=== PATIENT | female | born 1945 | race Caucasian/White ===

== ENCOUNTER 2023-10-01 09:06 | Emergency (ER) | payer MEDICARE, BC, SELFPAY ==
[2023-10-01 09:11] VITALS: BP 156/101
[2023-10-01 09:38] LABS: % Basophils 0.7 % (0-2); % Eosinophils 2.6 % (0-6); % Immature Granulocytes 0.4 % (0-0.5); % Lymphocytes 38.2 % (20.5-51.1); % Monocytes 8.8 % (1.7-9.3); % Neutrophils 49.3 % (42.2-75.2); Absolute Eosinophils 0.1 10^3/uL (0-0.7); Absolute Monocytes 0.5 10^3/uL (0.1-0.6); Absolute Neutrophils 2.6 10^3/uL (1.4-6.5); Hematocrit 43.1 % (37.0-47.0); Hemoglobin 14.8 g/dL (12.0-16.0); Mean Corp Hgb Conc. 34.3 g/dL (33.0-37.0); Mean Corpuscular Hgb 31.6 pg (27.0-31.0); Mean Corpuscular Volume 92.1 fL (81.0-99.0); Mean Platelet Volume 9.4 fL (7.4-10.4); Nucleated Red Blood Cells % 0 %; Platelet Count 229 10^3/uL (130-400); Red Blood Cell Count 4.68 10^6/uL (4.20-5.40); Red Cell Dist. Width 12.7 % (11.5-14.5); White Blood Cell Count 5.3 10^3/uL (4.8-10.8)
[2023-10-01 09:52] LABS: ALT (SGPT) 28 U/L (0-35); AST (SGOT) 30 U/L (14-36); Albumin 4.6 g/dl (3.5-5.0); Alkaline Phosphatase 88 U/L (38-126); Blood Urea Nitrogen 21 mg/dl (7-17); Calcium 10.7 mg/dl (8.4-10.2); Carbon Dioxide 24 mmol/L (22-30); Chloride 112 mmol/L (98-107); Glucose 123 mg/dl (70-99); Potassium 3.9 mmol/L (3.5-5.1); Sodium 145 mmol/L (135-145); Total Bilirubin 0.8 mg/dl (0.2-1.3); Total Protein 7.3 g/dl (6.3-8.2); eGFR > 60.00
[2023-10-01 10:00] VITALS: BP 169/92
--- NOTE | 2023-10-01 10:01 | ED.GENMED ---
History of Present Illness
General
Chief Complaint: Chest Pain
Source: patient and spouse
Exam Limitations: none
Time Seen by Provider: 10/01/23 10:01
Nursing documentation reviewed up to this point in time: agreed with
Travel History
Have you had any contact with someone who has COVID-19?: No
Do you have any symptoms of coronavirus? Fever > 100 degrees, chills, cough, shortness of breath, sore throat, loss of taste or smell, muscle aches, or headache?: No
History of Present Illness
History of Present Illness:
78-year-old female presents emergency room complaining of jaw pain, ear pain and chest pain at 7:45 AM. She took 381 mg enteric-coated aspirin, and now feels the pain is dissipating. She has had a cardiac workup before about 10 years ago. She
does not follow with a clinical haematologist.
Past History
Past History
ED Past Medical History: Cancer (Endometrial cancer, nodular basal cell cancer, right breast cancer), HTN and Other (Osteoporosis)
ED Past Surgical History: Gynecological (JAMIE), Orthopedic (oRIF right ankle 2007), Tonsilectomy (And adenoids age 6) and Other (Inguinal hernia repair, umbilical hernia repair age 3, eye surgery for strabismus age 17, bilateral mastectomy)
Social History
Tobacco: Non-smoker
Alcohol: None
Drug: None
Personal:
Living: with family
Review of Systems
Review of Systems
Allergies reviewed?: Yes
All Other Systems: Not applicable
Constitutional: Reports no symptoms
EENT: Reports mouth pain
Respiratory: Reports no symptoms
Cardiac: Reports chest pain
ABD/GI: Reports no symptoms
: Reports no symptoms
Musculoskeletal: Reports no symptoms
Skin: Reports no symptoms
Neurological: Reports no symptoms
Endocrine: Reports no symptoms
Hematologic/Lymphatic: Reports no symptoms
Psychiatric: Reports no symptoms
Phy Exam
Physical Exam
Physical Exam:
Physical Exam
General: no apparent distress, not acutely ill
Neck: supple. no meningeal signs. normal posterior pharynx
Heart: s1/s2 regular rate and rhythm, no murmur. equal radial
pulses.
HEENT: Pupils equal round reactive to light, EOMI
Lungs: no acute respiratory distress. clear bilaterally
Abdomen: normal bowel sounds. not tender. no CVAT
Neuro: alert and oriented. no focal neurological deficits cranial nerves II through XII intact
Skin: no rash
Psychiatric: well kept. interactive and cooperative
Extremities: no edema. no calf tenderness. negative homans. good distal pulses
Scores
Heart Score for Chest Pain Patients
STEMI patient?: No
History: Slightly or Non-Suspicious
ECG: Normal
Age: >/= 65 years
Risk Factors: 1 or 2 Risk Factors
Troponin: </= Normal Limit
Heart Score for Chest Pain Patients: 3
Heart Score Risk: 2.5% MACE over next 6 weeks
Course
Orders/Labs/Results
Orders:
Orders
10/01/23 09:06
EKG [Electrocardiogram (*1)] Urgent
Reason for Study: Chest Pain
10/01/23 09:07
EKG- Treatment ONCE
10/01/23 09:25
Complete Blood Count/With Diff Urgent
Comprehensive Metabolic Panel Urgent
Troponin I Urgent
10/01/23 12:23
Troponin I Urgent
Abnormal Lab Results
10/01/23
09:25
MCH 31.6 H pg
(27.0-31.0)
Chloride 112 H mmol/L
(98-107)
BUN 21 H mg/dl
(7-17)
Glucose 123 H mg/dl
(70-99)
Calcium 10.7 H mg/dl
(8.4-10.2)
10/01/23 09:25
10/01/23 09:25
Vital Signs
Initial and Last Documented VS:
Initial Vital Signs
Temp Pulse Resp BP Pulse Ox
97.8 F 76 22 156/101 97
10/01/23 09:11 10/01/23 09:11 10/01/23 09:11 10/01/23 09:11 10/01/23 09:11
Last Documented Vital Signs
Temp Pulse Resp BP Pulse Ox
97.8 F 65 13 165/88 96
10/01/23 09:11 10/01/23 13:15 10/01/23 13:15 10/01/23 13:00 10/01/23 13:15
MDM/Problems Addressed
Differential Diagnosis Includes:
acs, PE
MDM/Problems Addressed:
78 yo female with chest pain, resolved. Serial troponin negative, doubt ACS or PE. Patient stable for discharge with chest pain follow-up.
Chronic conditions affecting care: HTN
Acute Exacerbation and/or Progression of Chronic Illness: HTN
*Pulse Oximetry
Patient hypoxic: no
*EKG
Interpreted by ED Provider?: Yes
EKG Intrepretation Date: 10/01/23
EKG Intrepretation Time: 09:09
Interpretation: abnormal
Comparison EKG: no comparison EKG present
Heart Rate: 77
Rate: normal
Rhythm: sinus
Holly: normal axis
Interval: normal interval
QRS Pattern: normal QRS
Ischemia: non-specific ST changes
*Fiber Heel Piece Shaper Interpretation
Rate: normal
Interpretation: normal
Heart Rate: 77
Rhythm: sinus
*Critical Care Note
Total Time (30-74mins, 75-104mins- exclusive of procedures): Not Applicable
Patient Management
Social determinants of health affecting care: Living situation and Strong social support
Escalation/DeEscalation of care consider admission/obs:
Admit not indicated
ED Attending Note
-
Portions of this chart may have been created with voice recognition software.� Occasional wrong word or��sound alike� substitutions may have occurred due to the inherent limitations of voice recognition software.
Discharge Plan
Departure
Patient Disposition: Home (Routine Discharge)
Date of Disposition: 10/01/23
Time of Disposition: 14:06
Patient with high blood pressure during this ER visit?: Yes
Condition: Good
Discharge Problem:
Chest pain
Instructions: Chest Pain CBC Follow Up, BLOOD PRESSURE
Prescriptions:
No Action
lisinopril 40 mg Tablet
40 mg PO DAILY
hydralazine 25 mg Tablet
25 mg PO DAILY
Theragen Tablet
1 tab PO DAILY
aspirin 81 mg Tablet,Delayed Release (Dr/Ec)
324 mg PO DAILYPRN PRN (Reason: chest pains)
exemestane 25 mg Tablet
25 mg PO DAILY@1200
calcium carbonate-vitamin D3 [Calcium 600 + D(3)] 600 mg-10 mcg (400 unit) Tablet
1 tab PO DAILY
Refresh Optive 0.5-0.9 % Drops
1 drp BOTH EYES BID
[place] 3 Fish Oil 684-1,200 mg Capsule,Delayed Release(Dr/Ec)
1 cap PO DAILY
Prolia 60 mg/mL Syringe
60 mg SC [id number]
Glucosamine Chondroitin 550-30-1 mg Capsule
1 cap PO DAILY
Referrals:
Marvin Lucia MD [Family Provider] -
Interventions
Interventions:
*Risk Screen - Suicide Last Done: 10/01/23 10:01
*General Assessment Last Done: 10/01/23 09:56
*Neglect/Abuse Screening Last Done: 10/01/23 10:01
ED- Fall Risk Assessment Last Done: 10/01/23 09:56
*ED COVID-19 Vaccine History Last Done: 10/01/23 09:14
ED- Cardiac Assessment Last Done: 10/01/23 10:00
Discharge Date and Time
Print Language: GREENLANDIC
[2023-10-01 10:02] LABS: Troponin I < 0.012 ng/ml
[2023-10-01 11:00] VITALS: BP 126/76
[2023-10-01 12:00] VITALS: BP 154/82
[2023-10-01 12:53] LABS: Troponin I < 0.012 ng/ml
[2023-10-01 13:00] VITALS: BP 165/88
[2023-10-01 14:00] VITALS: BP 131/95
== END 2023-10-01 14:14 | disposition home or self-care (01) ==
LOC: EMR 09:06
PROVIDERS: Emergency Medicine; EMERGENCY PHYSICIAN Emergency Medicine; FAMILY PHYSICIAN Internal Medicine
DX: R07.89 Other chest pain (principal); I10 Essential (primary) hypertension
CPT/HCPCS: 99284; 80053; 84484; 85025; 93005

== ENCOUNTER → 2023-10-09 07:45 | Outpatient (REF) | payer MEDICARE, BC, SELFPAY | LOC: RCS 07:45 | PROVIDERS: ATTENDING PHYSICIAN Internal Medicine Cardiovascular Disease; FAMILY PHYSICIAN Internal Medicine | DX: R07.89 Other chest pain (principal); I10 Essential (primary) hypertension; R07.2 Precordial pain; I49.3 Ventricular premature depolarization | CPT/HCPCS: 78452; 93017; A9500 ==

== ENCOUNTER → 2024-08-17 13:02 | Outpatient (REF) | payer MEDICARE, BC, SELFPAY | LOC: RCS 13:02 | PROVIDERS: ATTENDING PHYSICIAN Internal Medicine Cardiovascular Disease; FAMILY PHYSICIAN Internal Medicine | DX: I77.819 Aortic ectasia, unspecified site (principal) | CPT/HCPCS: 93306 ==

== ENCOUNTER 2024-12-29 00:35 | Emergency (ER) | payer MEDICARE, BC, SELFPAY ==
[2024-12-29] VITALS (8 sets, daily range): BP systolic 141–180; BP diastolic 73–99; BMI 25.9
--- NOTE | 2024-12-29 02:00 | ED.GENMED ---
History of Present Illness
General
Chief Complaint: Chest Pain
Source: patient and spouse
Time Seen by Provider: 12/29/24 01:41
History of Present Illness
History of Present Illness:
This patient is a 79-year-old female presents emergency department with complaints of symptoms that started on her way back from a [employer] game. While in the car, she developed slight nausea and lightheadedness followed by the gradual onset of
pain across her chest associated with mild dyspnea and discomfort in bilateral ears. She checked her blood pressure when she got home and it was noted to be elevated x 2 which ultimately prompted her visit here. Now, here in the ER, she is
asymptomatic. She denies associated fever, chills, diaphoresis, abdominal pain, back pain, neck pain, numbness, tingling, leg swelling, or other complaints. Patient states she had similar symptoms last year and had a nuclear stress test that was
unremarkable.
Past History
Past History
ED Past Medical History: Cancer (Endometrial cancer, nodular basal cell cancer, right breast cancer), HTN and Other (Osteoporosis)
ED Past Surgical History: Gynecological (JAMIE), Orthopedic (oRIF right ankle 2007), Tonsilectomy (And adenoids age 6) and Other (Inguinal hernia repair, umbilical hernia repair age 3, eye surgery for strabismus age 17, bilateral mastectomy)
Social History
Tobacco: Non-smoker
Alcohol: None
Drug: None
Personal:
Living: with family
Phy Exam
Physical Exam
Physical Exam:
GENERAL: Alert , in no apparent distress
EYE: pupils equal and reactive
NECK: Supple, no significant adenopathy.
ENT: o/p clr, mmm.
CARDIAC: Regular rate and rhythm .
LUNGS: Clear breath sounds bilaterally, no acute respiratory distress, no wheezes/rales/rhonchi
ABDOMEN: Soft, without focal tenderness, no r/g, no cvat
NEUROLOGICAL: Alert and oriented, no focal neuro deficits
SKIN: Warm and dry, skin intact.
MUSCULOSKELETAL: No edema, well perfused.
PSYCH: Normal and appropriate interaction.
Scores
Heart Score for Chest Pain Patients
STEMI patient?: Not applicable
Course
Orders/Labs/Results
Orders:
Orders
12/29/24 00:38
EKG [Electrocardiogram (*1)] Urgent
Reason for Study: Chest Pain
EKG- Treatment ONCE
12/29/24 01:55
Cardiac Monitoring- Treatment ONCE
12/29/24 01:59
Complete Blood Count/No Diff Urgent
Comprehensive Metabolic Panel Urgent
Troponin I Urgent
12/29/24 05:18
Troponin I Urgent
Abnormal Lab Results
12/29/24
01:59
WBC 11.0 H 10^3/uL
(4.8-10.8)
MCH 31.9 H pg
(27.0-31.0)
BUN 26 H mg/dl
(7-17)
Glucose 144 H mg/dl
(70-99)
Calcium 10.9 H mg/dl
(8.4-10.2)
12/29/24 01:59
12/29/24 01:59
Vital Signs
Initial and Last Documented VS:
Initial Vital Signs
Temp Pulse Resp BP Pulse Ox
97.9 F 67 18 180/99 96
12/29/24 00:47 12/29/24 00:47 12/29/24 00:47 12/29/24 00:47 12/29/24 00:47
Last Documented Vital Signs
Temp Pulse Resp BP Pulse Ox
97.9 F 60 15 147/80 95
12/29/24 00:47 12/29/24 06:15 12/29/24 06:15 12/29/24 06:00 12/29/24 06:15
*Pulse Oximetry
SaO2: 96
Oxygen Mode of Delivery: Room air
Patient hypoxic: no
*Critical Care Note
Total Time (30-74mins, 75-104mins- exclusive of procedures): Not Applicable
Update Note
Update Note:
Patient presents to the Emergency Department with chest pain, ear pain, etc.
Number and Complexity of Problems Addressed at the Encounter
� Chronic conditions affecting care:
� Acute Exacerbation and/or Progression of Chronic Illness:
� Differential Diagnosis includes: But not limited to ACS, pleurisy, musculoskeletal, etc. etc.
Amount and/or Complexity of Data to be Reviewed and Analyzed
� I performed an independent evaluation of and my interpretation is:
EKG: Read by me, normal sinus rhythm with PVC, no acute ischemia noted
CT:
Xrays:
Laboratory Studies: Troponin x 2 unremarkable
Other:
� Review of other/old records reveals:
� Clinical information was obtained by an independent historian: who is bedside
� Prescriptions/Medications Considered but not given:
� Further testing considered but not performed:
Risk of Complications and/or Morbidity or Mortality of Patient Management
� Social determinants of health affecting care:
� Discussion with other providers (PCP, Hospitalists, Consultants, etc):
� Escalation of care including admission/observation vs risk of discharge considered: 7:04 AM patient remains awake alert comfortable in no distress. Workup generally unremarkable here recommend close follow-up discussed with
patient portance of follow-up and reasons return to the ER.
ED Attending Note
-
Portions of this chart may have been created with voice recognition software.� Occasional wrong word or��sound alike� substitutions may have occurred due to the inherent limitations of voice recognition software.
Discharge Plan
Departure
Patient Disposition: Home (Routine Discharge)
Date of Disposition: 12/29/24
Time of Disposition: 07:02
Patient with high blood pressure during this ER visit?: Yes
Condition: Good
Discharge Problem:
Chest pain
Instructions: BLOOD PRESSURE, Chest Pain
Prescriptions:
No Action
lisinopril 40 mg Tablet
40 mg PO DAILY
hydralazine 25 mg Tablet
25 mg PO DAILY
Theragen Tablet
1 tab PO DAILY
exemestane 25 mg Tablet
25 mg PO DAILY@1200
calcium carbonate-vitamin D3 [Calcium 600 + D(3)] 600 mg-10 mcg (400 unit) Tablet
1 tab PO DAILY
Refresh Optive 0.5-0.9 % Drops
1 drp BOTH EYES BID
[place] 3 Fish Oil 684-1,200 mg Capsule,Delayed Release(Dr/Ec)
1 cap PO DAILY
Prolia 60 mg/mL Syringe
60 mg SC [id number]
Glucosamine Chondroitin 550-30-1 mg Capsule
1 cap PO DAILY
cholecalciferol (vitamin D3) [Vitamin D3] 50 mcg (2,000 unit) Tablet
50 mcg PO DAILY
Referrals:
Kendall Gray MD [Active, Cardiology] - Next open appointment
Marvin Lucia MD [Family Provider, Internal Medicine]
Activity Restrictions/Additional Instructions:
IF YOU DEVELOP RECURRENT NEW OR WORSENING PAIN, ANY TROUBLE BREATHING, VOMITING, BACK PAIN, NECK PAIN, OR OTHER WORRISOME SIGNS, PLEASE RETURN TO THE ER IMMEDIATELY!
Interventions
Interventions:
*Risk Screen - Suicide Last Done: 12/29/24 00:54
*General Assessment Last Done: 12/29/24 00:47
*Neglect/Abuse Screening Last Done: 12/29/24 01:43
*ED- Fall Risk Assessment Last Done: 12/29/24 01:43
*ED COVID-19 Vaccine History Last Done: 12/29/24 01:43
ED- Cardiac Assessment Last Done: 12/29/24 01:30
Discharge Date and Time
Print Language: KINYARWAN[place]
[2024-12-29 02:18] LABS: Hematocrit 44.9 % (37.0-47.0); Hemoglobin 15.3 g/dL (12.0-16.0); Mean Corp Hgb Conc. 34.1 g/dL (33.0-37.0); Mean Corpuscular Volume 93.7 fL (81.0-99.0); Platelet Count 239 10^3/uL (130-400); Red Cell Dist. Width 12.5 % (11.5-14.5)
[2024-12-29 02:40] LABS: ALT (SGPT) 35 U/L (0-35); AST (SGOT) 24 U/L (14-36); Albumin 4.8 g/dl (3.5-5.0); Alkaline Phosphatase 78 U/L (38-126); Blood Urea Nitrogen 26 mg/dl (7-17); Calcium 10.9 mg/dl (8.4-10.2); Carbon Dioxide 26 mmol/L (22-30); Chloride 107 mmol/L (98-107); Estimated Creatinine Clearance 44 ml/min; Glucose 144 mg/dl (70-99); Potassium 4.8 mmol/L (3.5-5.1); Sodium 141 mmol/L (135-145); Total Protein 7.8 g/dl (6.3-8.2); eGFR > 60.00
[2024-12-29 02:52] LABS: Troponin I < 0.012 ng/ml
[2024-12-29 06:05] LABS: Troponin I < 0.012 ng/ml
--- NOTE | 2024-12-29 07:30 | EDRN ---
Reviewed discharge instructions with patient. Verbalized understanding. Ambulated with steady gait to the lobby to wait for her to come pick her up.
== END 2024-12-29 07:32 | disposition home or self-care (01) ==
LOC: EMR 00:35
PROVIDERS: EMERGENCY PHYSICIAN Emergency Medicine; FAMILY PHYSICIAN Internal Medicine; REFERRING PHYSICIAN Internal Medicine Cardiovascular Disease
DX: R07.9 Chest pain, unspecified (principal); I10 Essential (primary) hypertension; M81.0 Age-related osteoporosis without current pathological fracture; Z85.3 Personal history of malignant neoplasm of breast; Z90.13 Acquired absence of bilateral breasts and nipples; Z85.42 Personal history of malignant neoplasm of other parts of uterus; Z90.710 Acquired absence of both cervix and uterus; Z85.828 Personal history of other malignant neoplasm of skin
CPT/HCPCS: 99284; 80053; 84484; 85027; 93005

== ENCOUNTER → 2025-04-29 08:36 | Outpatient (REF) | payer MEDICARE, BC, SELFPAY | LOC: MRI 3T 08:36 | PROVIDERS: FAMILY PHYSICIAN Internal Medicine | DX: M54.12 Radiculopathy, cervical region (principal) | CPT/HCPCS: 72141 ==